=== PATIENT | female | born 1995 | race Caucasian/White ===

== ENCOUNTER 2020-02-07 12:30 | Emergency (ER) | payer OTHER ==
[~2020-02-07] VITALS: Ht 157.5 cm; Wt 90.7 kg
[~2020-02-07 12:30] MED LIST: QUETIAPINE FUM100 MG; QUETIAPINE FUM100 MG PO; TRILEPTAL150 MG PO
[2020-02-07] MEDS ORDERED: PNV 29-1 TABLE1 EACH PO (12:42)
[2020-02-07 13:22] VITALS: BP 124/80
== END 2020-02-07 13:22 | disposition home or self-care (01) ==
LOC: ER 12:30
DX: O26.892 Other specified pregnancy related conditions, second trimester (principal); L23.9 Allergic contact dermatitis, unspecified cause; Z79.899 Other long term (current) drug therapy; Z91.048 Other nonmedicinal substance allergy status; Z3A.27 27 weeks gestation of pregnancy